=== PATIENT | male | born 2000 | race Caucasian/White ===

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

== ENCOUNTER 2018-04-26 04:35 | Emergency (ER) | payer SELFPAY ==
[2018-04-26 04:35] VITALS: BP 138/75; PULSE 73; RESP 18; TEMP 36.9; O2SAT 98; BMI 24.4
--- NOTE | 2018-04-26 04:43 | ED.DCSUM_ITS ---
- ER Visit Summary Date of Service: 04/26/18 Chief Complaint: Dental pain History of Present Illness: The patient is a 17 M who presents with dental pain. He complains of pain in his bilateral upper teeth for several months. He states it was worse this morning when he woke up. He did take Tylenol about 10 hours ago but did not take anything this morning. No fevers. Review of systems otherwise negative. Physical Examination: Afebrile vitals are normal No distress Oropharynx clear he does not have any focal dental decay he has no focal dental tenderness he has no focal dental abscess No trismus clear speech Test Results: Not indicated Emergency Department Course and Treatment: I do not see evidence of focal infection/abscess. I do not see an indication for antibiotics. He was given naproxen for pain. He was given a prescription for the same. He was advised to follow-up with a dentist. Patient discharged. Treatment Plan: [] Disposition: Discharge Impression: Dental pain This note was generated with [employer] dictation software. It may contain incorrect words, spelling, and punctuation that were not noted in review of the chart barrett or to signing ED Disposition - Plan for ED Patient: Chief Complaint: Dental Referrals: Lucho Pedroza MD [Primary Care Provider] -
--- NOTE | 2018-04-26 04:43 | ED.DEP ---
ED Disposition - Plan for ED Patient: Chief Complaint: Dental Instructions: ED Tooth Pain Prescriptions: Naproxen [Naprosyn] 500 mg PO BID #14 tab Referrals: Lucho Pedroza MD [Primary Care Provider] -
[2018-04-26] MEDS: Naproxen 500 MG Tablet PO (04:46)
[2018-04-26 04:48] VITALS: PULSE 71; RESP 16; O2SAT 98
== END 2018-04-26 04:55 | disposition home or self-care (01) ==
LOC: ED 04:54
PROVIDERS: Emergency Provider Emergency Medicine; Family Provider Pediatrics; PCP Pediatrics
DX: K08.89 Other specified disorders of teeth and supporting structures (principal); Z72.0 Tobacco use
CPT/HCPCS: 99283

== ENCOUNTER 2018-12-29 12:58 | Emergency (ER) | payer SELFPAY ==
[2018-11-14 18:26] VITALS: BMI 23.1
[2018-12-29] VITALS (9 sets, daily range): BP systolic 112–120; BP diastolic 64–90; PULSE 70–80; RESP 14–19; TEMP 36.9; O2SAT 97–99; BMI 23.2
--- NOTE | 2018-12-29 13:15 | ED.VIS.GEN ---
History of Present Illness Chief Complaint: Mental Health Informant: Patient, Creative Services Coordinator, - - Police Narrative: Patient presents with multiple cuts to his left wrist, feeling quite depressed and sad. He has thoughts of hurting himself but does not want to . He is here against his wishes, ambulance and police department were called to his house by family member after the cutting. Apparently he is quite sad secondary to his father being very close to dying. Past Medical History - Allergies and Home Meds Allergies/Adverse Reactions: Allergies polyethylene glycol 3350 [From Miralax] Allergy (Verified 12/29/18 12:59) Hives Primary Care Physician: Care Physician,No Primary [Primary Care Provider] - Past Medical History: None Surgical History: no surgical history Smoking Status: Current every day smoker Review of Systems All systems negative except as indicated Cardiovascular: Denies: Chest pain Gastrointestinal: Denies: Abdominal pain Musculoskeletal: Denies: Back pain Skin: Reports: Abrasions, Wounds Neurological: Denies: Weakness Psych: Reports: Depression, Anxiety Hematologic: Denies: Easy bleeding Physical Exam Vital Signs/Narrative: Vital Signs Temp Pulse Resp BP Pulse Ox 12/29/18 12:59 98.4 F 70 17 120/69 99 General: Well nourished, Well developed Eyes: Perrl ENT: Moist mucous membranes Cardiovascular: Regular rate, Regular rhythm Respiratory: No distress Abdomen: Soft, Nontender Back: Nontender, Normal Inspection Extremities: - - Left wrist shows multiple abrasions, there is one laceration through the dermal layer of the is about 5 cm long. Neurological: Normal Strength, Normal Sensation Diagnostic/Tx/Re-eval - Medical Decision Making Patient was medically cleared and evaluated by crisis. He was sutured. Disposition is to reevaluate by crisis. Procedures - Lacerations No standard instances Length: 1.97 in Depth: Sub Q Shape: Linear Prep: Shure-Clens Laceration repair: Lidocaine Number of Sutures/Jennings: 3 Suture Information: Ethilon, 4-0 ED Disposition - Plan for ED Patient: Disposition: Psychiatric Hospital or Unit Diagnosis: Depression, Laceration Referrals: Care Physician,No Primary [Primary Care Provider] -
[2018-12-29 13:37] LABS: Absolute Lymphocyte Count 2.27 X10^3/uL (0.83-4.51); Absolute Neutrophil Count 6.2 X10^3/uL (2.0-7.7); Basophil# 0.08 X10^3/uL; Basophil% 0.9 % (0-1); Eosinophil# 0.37 X10^3/uL; Hematocrit 48.6 % (40-54); Lymphocyte # 2.27 X10^3/ul (4.0); Lymphocyte % 24.3 % (19-41); Mean Corp Hgb Conc 32.9 g/dL (32-36); Mean Corpuscular Hgb 28.7 pg (27.0-32.0); Mean Corpuscular Volume 87.3 fL (80-94); Mean Platelet Vol. 10.1 fl (6.2-12.0); Monocyte# 0.35 X10^3/uL; Monocyte% 3.7 % (0-10); NRBC Flagged by Analyzer 0 % (0-5); Neutrophil # 6.24 X10^3/uL (2.7-7.7); Neutrophil % 66.6 % (47-70); POSITIVE COUNT YES; RBC Distribution Width CV 13.2 % (11.6-14.6); RBC Distribution Width SD 41.9 fl (35.1-43.9); Red Blood Count 5.57 M/mm3 (4.6-6.2); White Blood Count 9.4 K/mm3 (4.4-11.0)
[2018-12-29 13:39] LABS: Differential Indicated SCAN CRITERIA MET
--- NOTE | 2018-12-29 13:40 | CM.ED ---
SOCIAL WORK REVIEWED PATIENT'S CHART. PATIENT IS SELF-PAY. CRISIS TO EVALUATE ONCE PATIENT IS MEDICALLY CLEARED. SHMUEL MYERS, NEWSPAPER DELIVERER, NEEDLE MOLDER.
[2018-12-29 13:47] LABS: Anion Gap 4 (5-15); BUN 17 mg/dL (7-18); BUN/Creat Ratio 18.9 RATIO (10-20); Calcium,Total 9.3 mg/dL (8.5-10.1); Chloride 111 mmol/L (98-107); EST Glomerular Filtration Rate 114 mL/min (>60); Est Glom Filt Rate - Afr Amer 137 mL/min (>60); Glucose 96 mg/dL (74-106); Potassium 4.3 mmol/L (3.5-5.1); Sodium Level 141 mmol/L (136-145)
[2018-12-29 13:52] LABS: Amphetamine Urine VISTA POSITIVE (<1000 ng/mL); Barbiturate Urine VISTA NEGATIVE (< 200 ng/mL); Benzodiazepine Urine VISTA NEGATIVE (< 200 ng/mL); Cocaine Urine VISTA POSITIVE (< 300 ng/mL); Ecstacy Urine VISTA NEGATIVE (< 500 ng/mL); Methadone Urine VISTA NEGATIVE (< 300 ng/mL); PCP Urine VISTA NEGATIVE (< 25 ng/mL); THC Urine VISTA POSITIVE (< 50 ng/mL); Vista UDS pH Range 6
[2018-12-29 13:59] LABS: Alcohol, Blood (Medical)-Serum < 3.0 mg/dL
[2018-12-29 14:15] LABS: Platelet Morphology CLUMPED
[2018-12-29 14:17] LABS: Platelet Estimate ADEQUATE (ADEQ); Red Cell Morphology NORM C+C NORMAL (NORM C&C)
--- NOTE | 2018-12-29 14:48 | CM.ED ---
SOCIAL WORK CRISIS CALLED TO UPDATE ON CONSULT, SPOKE WITH MARIO. PER MARIO, WILL BE SENDING SOMEONE OVER. SHMUEL MYERS, STONE DECORATOR, WAREHOUSE EXAMINER.
--- NOTE | 2018-12-29 18:21 | ED.RN ---
PER CRISIS; PT WILL BE PLACED WITH [facility]
--- NOTE | 2018-12-29 19:00 | ED.RN ---
waiting on bed placement at [facility]
--- NOTE | 2018-12-29 21:06 | EKG12_ITS ---
[place] [facility] [place] Pressure : / mmHG Vent. Rate : 049 BPM Atrial Rate : 049 BPM P-R Int : 136 ms QRS Dur : 096 ms QT Int : 428 ms P-R-T Axes : 051 057 049 degrees QTc Int : 386 ms Sinus bradycardia with Premature atrial complexes Otherwise normal ECG Confirmed by ASHVIN HORVATH, ALYSSIA ([id number]), graphic editor MALENA MALIK ([id number]) on 01/02/2019 12:02:28 PM Referred By: DANIELLE Confirmed By:SHLOMO LOCK MD
--- NOTE | 2018-12-29 21:46 | ED.RN ---
[facility] REQUESTED A CK FOR THE PT POSITIVE COCAINE RESULT. DR. SINGH MADE AWARE VERBAL ORDER READ BACK TO THE DR FOR CPK TEST. WILL SEND DOWN TO THE LAB AND AWAIT RESULT. PT HAS NO FURTHER NEEDS AT THIS TIME AND IS RESTING COMFORTABLY.
[2018-12-29 22:15] LABS: CPK Total, Creatine Kinase 153 U/L (39-308)
[2018-12-30] VITALS (10 sets, daily range): BP systolic 115–122; BP diastolic 63–89; PULSE 70–82; RESP 15–18; O2SAT 97–98
--- NOTE | 2018-12-30 08:59 | ED.RN ---
PT GIVEN BREAKFAST TRAY. PT REFUSED TRAY. TRAY WAS LEFT IN THE ROOM AND PT INFORMED THAT TRAY WAS ON COUNTER.
--- NOTE | 2018-12-30 11:18 | NURSING ---
PT REQUESTED TO BE RE-EVALUATED BY CRISIS. CRISIS CALLED AND GILLIAN TO CALL BACK.
--- NOTE | 2018-12-30 11:33 | ED.RN ---
PT REQUESTED REEVALUATION BY CRISIS. PT DENIES SUICIDAL IDEATION AND WISHES TO GO HOME, STATES IT IS HIS CHILD'S FIRST BIRTHDAY. PT STATES THAT HE WAS NEVER SUICIDAL. CRISIS WAS CONTACTED AND GILLIAN AGREED TO REEVALUATE PT. PT WAS PROVIDED WITH PHONE TO CONTACT FAMILY. PT UPDATED ABOUT CRISIS COMING TO SPEAK TO HIM. PT ALSO INFORMED THAT REEVALUATION DOES NOT GUARANTEE ABILITY TO GO HOME. PT CONVEYED UNDERSTANDING. DENIES FURTHER NEEDS AT THIS TIME.
--- NOTE | 2018-12-30 11:36 | NURSING ---
CHRIS, CRISIS, CALLED. HE WILL BE OVER TO SEE PATIENT
--- NOTE | 2018-12-30 12:19 | ED.RN ---
PT GIVEN LUNCH TRAY. PT REFUSED TO EAT, STATES THAT HE IS PICKY ABOUT WHERE I EAT MY FOOD FROM. PT OFFERED OTHER OPTIONS FOR FOOD, PT REFUSED. LUNCH WAS LEFT IN ROOM ON COUNTER FOR LATER.
--- NOTE | 2018-12-30 13:21 | ED.DEP ---
ED Disposition - Plan for ED Patient: Disposition: Psychiatric Hospital or Unit Diagnosis: Depression, Laceration Instructions: Depression Additional Instructions: Follow up as advised by the counseling center.
== END 2018-12-30 13:24 | disposition home or self-care (01) ==
PROVIDERS: Emergency Provider Emergency Medicine
DX: F32.9 Major depressive disorder, single episode, unspecified (principal); I49.1 Atrial premature depolarization; F17.200 Nicotine dependence, unspecified, uncomplicated; Z91.5 Personal history of self-harm
CPT/HCPCS: 80048; 80307; 80320; 82550; 85025; 93005; 99284; G0480; J3486

== ENCOUNTER 2020-02-03 17:04 | Emergency (ER) | payer MEDICAID, SELFPAY ==
[2018-12-29 12:59] VITALS: BMI 23.2
[2020-02-03 17:05] VITALS: BP 144/75; PULSE 104; RESP 16; TEMP 36.1; O2SAT 97; BMI 23.6
--- NOTE | 2020-02-03 17:51 | ED.RN ---
pt unsure if he wants to sign and complete the ramp agreement. pt states I only want to if my brother is. Pt reminded that if admitted he will not be allowed to see or talk with his brother. Pt states I want to think about it for awhile.
--- NOTE | 2020-02-03 18:36 | ED.DCSUM_ITS ---
History of Present Illness Chief Complaint: Substance Abuse Informant: Patient Narrative: Patient is a 19-year-old male with history of IV drug abuse presenting for evaluation for inpatient detox. Patient last used IV heroin yesterday. He states this week he has been using daily but for that he has been using every other day. He states he wants to get clean because he is pushed away his girlfriend and their child. He is presenting with his brother who has the same chief complaint. Patient states has been using since July 31 of this year when he was released from longterm. He has been in contact with [facility] as well. He currently denies any withdrawal symptoms such as nausea, vomiting, abdominal pain, extremity discomfort. His only complaint is nausea. He denies any other illicit drug use or alcohol use. Patient states he is uncomfortable with idea of having to come to the hospital and really just wants to get out of town with a family friend where he can be away from all of his drug contacts. Past Medical History - Allergies and Home Meds Allergies/Adverse Reactions: Allergies polyethylene glycol 3350 [From Miralax] Allergy (Verified 02/03/20 17:07) Roberto Primary Care Physician: Care Physician,No Primary [Primary Care Provider] - Past Medical History: - - History of IV opioid abuse Surgical History: no surgical history Lives: With Family Smoking Status: Current every day smoker Alcohol: None Drugs: Heroin Review of Systems General: Denies: Chills, Fever, Sweats Eyes: Denies: Visual changes - bilaterally, Diplopia ENT: Denies: Rhinorrhea, Sore throat Cardiovascular: Denies: Chest pain, Palpitations Respiratory: Denies: Dyspnea, Cough, Dyspnea on exertion Gastrointestinal: Denies: Abdominal pain, Nausea, Vomiting, Diarrhea, Melena, Hematochezia Genitourinary: Denies: Dysuria, Hematuria, Frequency Musculoskeletal: Denies: Back pain, Extremity Pain Skin: Denies: Rash, Wounds Neurological: Denies: Headache, Weakness, Numbness Psych: Reports: Anxiety. Denies: Depression, Suicidal thoughts, Suicidal ideations Physical Exam Vital Signs/Narrative: Vital Signs Temp Pulse Resp BP Pulse Ox 02/03/20 17:05 97.0 F L 104 H 16 144/75 H 97 Inital Vital Signs reviewed: Yes General: Well nourished, Well developed, No Acute Distress Head: Normocephalic, Atraumatic Eyes: Perrl, EOMI ENT: Moist mucous membranes, No rhinorrhea Neck: Supple, Nontender Cardiovascular: Regular rate, Regular rhythm, No murmurs Respiratory: No distress, CTA bilaterally, Chest nontender Abdomen: Soft, Nontender, Nondistended, Normal bowel sounds Back: Nontender, Normal Inspection Extremities: Nontender, No edema Skin: Normal color, No rash Neurological: Alert, Oriented x3, Cranial nerves II-XII grossly intact, Normal Strength, Normal Sensation Psychological: Normal affect, Normal Mood, - - Mildly anxious but behaving appropriately. Negative for: Depressed, Tearful Diagnostic/Tx/Re-eval - Medical Decision Making Patient is evaluated for opioid withdrawal. He does not appear to be actively withdrawing. Its been at least 24 hours since he last used and is not having a ny significant symptoms. His only symptom is anxiety that seems to be more related to the situation than the withdrawal. She is offered admission for opioid withdraws is only been 24 hours but he declines stating he really does not want to come to the hospital. He does not use any significant sedatives or alcohol and I do not think he is at risk for delirium tremens. He is behaving appropriately and has capacity to make his medical decisions. His vital signs are normal. Patient be discharged home with instructions to contact rehab facility as I think he would be a good candidate for an inpatient rehab facility. He is encouraged to continue to use [facility] for resources. He will be with his mother and a family friend and I believe the plan is for them to leave the [facility] where all of the drug contacts are. ED Disposition - Plan for ED Patient: Disposition: Home or Assisted Living Diagnosis: IV drug abuse, Opioid abuse Instructions: ED Abuse Narcotic Referrals: [facility] [STAFF PHYSICIAN] -
== END 2020-02-03 18:59 | disposition home or self-care (01) ==
PROVIDERS: Emergency Provider Emergency Medicine
DX: F11.10 Opioid abuse, uncomplicated (principal); F17.200 Nicotine dependence, unspecified, uncomplicated
CPT/HCPCS: 99282

== ENCOUNTER 2021-05-03 15:07 | Observation (INO) | payer MEDICAID, SELFPAY ==
[2021-05-03 15:08] VITALS: BP 137/71; PULSE 100; RESP 18; TEMP 36.6; O2SAT 100; BMI 25.0
[2021-05-03 16:11] VITALS: PULSE 82; RESP 15; O2SAT 99
[2021-05-03 16:52] LABS: Absolute Lymphocyte Count 1.86 X10^3/uL (0.83-4.51); Absolute Neutrophil Count 7.2 X10^3/uL (2.0-7.7); Basophil# 0.04 X10^3/uL; Basophil% 0.4 % (0-1); Eosinophil# 0.08 X10^3/uL; Eosinophils% 0.9 % (0-5); Hematocrit 43.5 % (40-54); Hemoglobin 13.9 g/dL (13.0-16.5); Lymphocyte # 1.86 X10^3/ul (0.83-4.51); Lymphocyte % 19.9 % (19-41); Mean Corpuscular Hgb 26.3 pg (27.0-32.0); Mean Corpuscular Volume 82.4 fL (80-94); Mean Platelet Vol. 8.4 fl (6.2-12.0); Monocyte# 0.22 X10^3/uL; Monocyte% 2.3 % (0-10); NRBC Flagged by Analyzer 0 % (0-5); Neutrophil # 7.15 X10^3/uL (2.7-7.7); Neutrophil % 76.3 % (47-70); Platelet Count 228 K/mm3 (150-450); RBC Distribution Width CV 14.2 % (11.6-14.6); RBC Distribution Width SD 42.5 fl (35.1-43.9); Red Blood Count 5.28 M/mm3 (4.6-6.2); White Blood Count 9.4 K/mm3 (4.4-11.0)
[2021-05-03 17:02] LABS: Amphetamine Urine VISTA POSITIVE (<1000 ng/mL); Barbiturate Urine VISTA NEGATIVE (< 200 ng/mL); Benzodiazepine Urine VISTA NEGATIVE (< 200 ng/mL); Cocaine Urine VISTA NEGATIVE (< 300 ng/mL); Ecstacy Urine VISTA POSITIVE (< 500 ng/mL); Methadone Urine VISTA NEGATIVE (< 300 ng/mL); PCP Urine VISTA NEGATIVE (< 25 ng/mL); THC Urine VISTA POSITIVE (< 50 ng/mL); Vista UDS pH Range 6
[2021-05-03 17:12] LABS: Alcohol, Blood (Medical)-Serum < 3.0 mg/dL; Anion Gap 7 (5-15); BUN 13 mg/dL (7-18); BUN/Creat Ratio 18.8 RATIO (10-20); Calcium,Total 9.5 mg/dL (8.5-10.1); Chloride 106 mmol/L (98-107); Creatinine, Serum 0.69 mg/dL (0.70-1.30); EST Glomerular Filtration Rate 151 mL/min (>60); Est Glom Filt Rate - Afr Amer 183 mL/min (>60); Estimated Creatinine Clearance 184.32 ml/min; Glucose 96 mg/dL (74-106); Sodium Level 140 mmol/L (136-145)
--- NOTE | 2021-05-03 17:43 | EDS_ITS ---
HPI History of Present Illness Chief Complaint: Substance Abuse Narrative Narrative: 20-year-old male presenting for detox from opioids. He states he does heroin and does about an 8 ball a day. He states he does smoke marijuana. Patient states that he has not detox before. His last use was about 17 hours ago. He states he has no other significant medical history. He denies EtOH use. PFSH PFS Medical History Anxiety Asthma Depression Substance abuse Home Medications NK 11/14/18 [History Last Taken Unknown] Allergy/AdvReac Type Severity Reaction Status Date / Time polyethylene glycol 3350 Allergy Hives Verified 05/03/21 15:09 [From Miralax] Social History Smoking Status: Heavy Smoker (>10/day) ROS ROS ED Constitutional Constitutional ED: Denies chills, fever(s) or sweats Eyes Eyes: Denies blurry vision or change in vision ENT ENT ED: Denies ear pain or sore throat Cardiovascular Cardiovascular: Denies chest pain, palpitations or racing heartbeat Respiratory/Chest Respiratory/Chest: Denies cough, dyspnea or sputum Gastrointestinal Gastrointestinal: Denies abdominal pain, constipation, diarrhea, nausea or vomiting Genitourinary Genitourinary ED: Denies dysuria, hematuria or urinary frequency Musculoskeletal Musculoskeletal: Denies arthralgias, myalgias or neck pain Integumentary Denies abscess, Abrasions or rash Neurologic Neurologic: Denies headache(s), paresthesias or weakness Psychiatric Psychiatric: Denies anxiety, depression, suicidal ideation or suicidal thoughts Endocrine Endocrinology: Denies polydipsia or polyuria EXAM Physical Exam Const Vital Signs: 05/03/21 15:08 05/03/21 16:11 05/03/21 18:04 Temperature 97.9 F 97.8 F Temperature Source Temporal Temporal Pulse Rate 100 82 72 Respiratory Rate 18 15 15 Blood Pressure 137/71 H 125/84 H Blood Pressure Mean 93 97 Pulse Ox 100 99 98 Oxygen Delivery Method Room Air Room Air Room Air Positive well nourished General Appearance ED: NAD; Negative for pallor HEENT Reports moist mucous membranes atraumatic Eyes PERRL and EOMs intact bilaterally Resp normal respiratory effort and clear to auscultation bilaterally Cardio regular rate and regular rhythm Neuro oriented x3 Sensorium / Orientation: alert Psych mental status grossly normal and thought process normal Skin General Skin Exam: Negative for jaundice or pallor Lesions: no lesions Rashes: no rashes MDM MDM MDM Narrative Medical decision making narrative: Patient presenting for detox from heroin. When asked how much he used he stated an 8 ball. He uses this daily. Patient also admits to using marijuana. He denies EtOH use. Blood work today is normal. EtOH negative. Talk screen is positive for cannabinoids and methamphetamine. It is unclear whether he has been using fentanyl instead of heroin. Discussed with hospitalist for admission. Impression: 1. Opioid detox 2. Methamphetamine abuse Lab Data Attestation: I reviewed the patient's lab results. Labs: Laboratory Results - last 24 hr 05/03/21 05/03/21 05/03/21 16:42 16:42 16:42 WBC 9.4 RBC 5.28 Hgb 13.9 Hct 43.5 MCV 82.4 MCH 26.3 L MCHC 32.0 RDW Std Deviation 42.5 RDW Coeff of Concetta 14.2 Plt Count 228 MPV 8.4 Immature Gran % (Auto) 0.200 Neut % (Auto) 76.3 H Lymph % (Auto) 19.9 [place] % (Auto) 2.3 Eos % (Auto) 0.9 Baso % (Auto) 0.4 Absolute Neuts (auto) 7.2 Absolute Lymphs (auto) 1.86 Nucleated RBC % 0 Sodium 140 Potassium 4.0 Chloride 106 Carbon Dioxide 27.0 Anion Gap 7 BUN 13 Creatinine 0.69 L Estim Creat Clear Calc 184.32 Est GFR (MDRD) Af Amer 183 Est GFR (MDRD) Non-Af 151 BUN/Creatinine Ratio 18.8 Glucose 96 Calcium 9.5 Urine Opiates Screen Urine Methadone Screen Ur Barbiturates Screen Ur Phencyclidine Scrn Ur Amphetamines Screen U Methamphetamin-MDMA U Benzodiazepines Scrn Urine Cocaine Screen U Cannabinoids Screen Ur Drug Screen Comment Ethyl Alcohol < 3.0 05/03/21 16:42 WBC RBC Hgb Hct MCV MCH MCHC RDW Std Deviation RDW Coeff of Concetta Plt Count MPV Immature Gran % (Auto) Neut % (Auto) Lymph % (Auto) [place] % (Auto) Eos % (Auto) Baso % (Auto) Absolute Neuts (auto) Absolute Lymphs (auto) Nucleated RBC % Sodium Potassium Chloride Carbon Dioxide Anion Gap BUN Creatinine Estim Creat Clear Calc Est GFR (MDRD) Af Amer Est GFR (MDRD) Non-Af BUN/Creatinine Ratio Glucose Calcium Urine Opiates Screen NEGATIVE Urine Methadone Screen NEGATIVE Ur Barbiturates Screen NEGATIVE Ur Phencyclidine Scrn NEGATIVE Ur Amphetamines Screen POSITIVE H U Methamphetamin-MDMA POSITIVE H U Benzodiazepines Scrn NEGATIVE Urine Cocaine Screen NEGATIVE U Cannabinoids Screen POSITIVE H Ur Drug Screen Comment Ethyl Alcohol Discharge Plan Triage Chief Complaint: Substance Abuse ED Provider: Magdaleno Nuñez Dx/Rx/DC Orders Prescriptions: No Action NK RF: 0 Primary Care Provider: Care Physician,No Primary
[2021-05-03 18:04] VITALS: BP 125/84; PULSE 72; RESP 15; TEMP 36.6; O2SAT 98
--- NOTE | 2021-05-03 18:24 | PCM.HP.STD ---
HPI - General General Date of Admission: 05/03/21 Date of Service: 05/03/21 Chief Complaint: Acute opioid withdrawal HPI Narrative CALI JACKMAN, is a 20 M who presents to the emergency room at [facility] requesting services for opiate detox. Patient states that he injects fentanyl and uses weed, he denies use of alcohol or amphetamines. Patient is complaining of nervousness and feeling anxious, denies any nausea and vomiting, last use was approximately 17 hours ago. Patient states that he has been using for 3 years and he has not gone through detox before. Patient states he does not have any chronic medical problems. Work-up in the emergency room included labs which included a normal CBC, chemistry panel is unremarkable, toxicology panel was positive for amphetamines, methamphetamines, and cannabinoids. Ethyl alcohol was under 3. Patient will be admitted to [facility] using the opiate detox order set, patient states that he would like to follow-up as an outpatient rather than doing inpatient stay when he is released from the hospital. [facility] Medical History Anxiety Asthma Depression Substance abuse Home Medications NK 11/14/18 [History Last Taken Unknown] Allergy/AdvReac Type Severity Reaction Status Date / Time polyethylene glycol 3350 Allergy Hives Verified 05/03/21 15:09 [From Miralax] Social History Smoking Status: Heavy Smoker (>10/day) ROS Constitutional Constitutional: Reports malaise; Denies anorexia, change in weight, chills, fatigue, fever(s), night sweats or weakness Eyes Eyes: Denies blurry vision, change in vision, discharge from eye(s), double vision or eye pain ENT HEENT: Denies abnormal hearing, ear pain or hearing loss Cardiovascular Cardiovascular: Denies chest pain, claudication, dyspnea on exertion, edema, lightheadedness, palpitations or rapid heart rate Respiratory/Chest Respiratory/Chest: Denies cough, dyspnea, excessive phlegm production, hemoptysis, productive cough, shortness of breath at rest or shortness of breath with exertion Gastrointestinal Gastrointestinal: Denies abdominal pain, coffee ground emesis, constipation, diarrhea, dyspepsia, hematemesis, hematochezia, melena, nausea or vomiting Genitourinary Genitourinary: Denies dysuria, hematuria, urinary frequency, urinary hesitancy, urinary incontinence or urinary urgency Musculoskeletal Musculoskeletal: Denies back pain, joint pain, joint stiffness, joint swelling, myalgias or neck pain Neurologic Neurologic: Reports tremor(s); Denies abnormal gait, abnormal speech, dizziness, focal weakness, headache(s), loss of vision, numbness, other visual disturbances, paresthesias, syncope or tingling Psychiatric Psychiatric: Reports anxiety and irritability; Denies cognitive impairment, depression, mood swings or suicidal ideation Endocrine Endocrinology: Denies change in body appearance, cold intolerance, excessive sweating, heat intolerance, polydipsia or polyuria Hematologic/Lymphatic Hematologic/Lymphatic: Denies none, anemia, easy bleeding, easy bruising or lymphadenopathy Allergic/Immunologic Allergic/Immunologic: Denies rhinitis, urticaria, eczemia or asthma Vital Signs Vital Signs Vital Signs: 05/03/21 15:08 05/03/21 16:11 05/03/21 18:04 Temperature 97.9 F 97.8 F Temperature Source Temporal Temporal Pulse Rate 100 82 72 Respiratory Rate 18 15 15 Blood Pressure 137/71 H 125/84 H Blood Pressure Mean 93 97 Pulse Ox 100 99 98 Oxygen Delivery Method Room Air Room Air Room Air Weight Weight: 83.915 kg Body Mass Index (BMI) 25.0 Physical Exam Const alert, oriented x3, no apparent distress and average body habitus General Appearance: cooperative, well kempt and well developed Orientation / Consciousness: awake, oriented to person, oriented to place and oriented to time HEENT normocephalic, head/scalp atraumatic, hearing grossly normal bilaterally and moist oral mucous membranes Eyes PERRL, EOMs intact bilaterally and conjunctivae normal Neck nuchal rigidity, supple, no JVD, thyroid normal and no carotid bruits General: trachea midline Resp normal respiratory effort, no retractions, no use of accessory muscles and clear to auscultation bilaterally Auscultation: Negative for rales, rhonchi or wheezes Cardio regular rate, regular rhythm, S1 normal heart sound, S2 normal heart sound, no murmurs, no rub and no gallops GI normal to inspection, nondistended, normoactive bowel sounds, soft to palpation, non-tender and non-distended Extremity no clubbing, cyanosis or edema Extremity Narrative: Patient has track mckee in various areas over his left and right arms, these areas do not appear to be infected and there is no purulent drainage from these areas. Skin no jaundice, no petechiae and no mottling Skin Narrative: Track mckee are noted over both arms in various areas. General Skin Exam: no breakdown Neuro oriented x3, CN's II-XII intact bilaterally, no focal motor deficits and no sensory deficits noted Sensorium / Orientation: awake and alert Speech: speech normal Psych thought process normal Psych Narrative: Patient appears mildly nervous during the time of my examination Results Lab / Micro Data Result Diagrams: 05/03/21 16:42 05/03/21 16:42 Labs: Laboratory Results - last 24 hr 05/03/21 16:42: WBC 9.4, RBC 5.28, Hgb 13.9, Hct 43.5, MCV 82.4, MCH 26.3 L, MCHC 32.0, RDW Std Deviation 42.5, RDW Coeff of Concetta 14.2, Plt Count 228, MPV 8.4, Immature Gran % (Auto) 0.200, Neut % (Auto) 76.3 H, Lymph % (Auto) 19.9, [place] % (Auto) 2.3, Eos % (Auto) 0.9, Baso % (Auto) 0.4, Absolute Neuts (auto) 7.2, Absolute Lymphs (auto) 1.86, Nucleated RBC % 0 05/03/21 16:42: Sodium 140, Potassium 4.0, Chloride 106, Carbon Dioxide 27.0, Anion Gap 7, BUN 13, Creatinine 0.69 L, Estim Creat Clear Calc 184.32, Est GFR (MDRD) Af Amer 183, Est GFR (MDRD) Non-Af 151, BUN/Creatinine Ratio 18.8, Glucose 96, Calcium 9.5 05/03/21 16:42: Ethyl Alcohol < 3.0 05/03/21 16:42: Urine Opiates Screen NEGATIVE, Urine Methadone Screen NEGATIVE, Ur Barbiturates Screen NEGATIVE, Ur Phencyclidine Scrn NEGATIVE, Ur Amphetamines Screen POSITIVE H, U Methamphetamin-MDMA POSITIVE H, U Benzodiazepines Scrn NEGATIVE, Urine Cocaine Screen NEGATIVE, U Cannabinoids Screen POSITIVE H, Ur Drug Screen Comment Assessment & Plan Assessment/Plan (1) Opioid withdrawal: PLAN: 1. Acute opioid withdrawal-patient was admitted to [facility], orders were entered using the opiate detox order set #2 chronic opioid addiction-patient will need to talk with 180 during his hospitalization, he states he is in favor of doing that, again patient would like to do an outpatient program when he is released from the hospital. #3 polypharmacy-patient's talk screen was positive for amphetamines, methamphetamines, and cannabinoids Charges/Coding Visit Charges Inpatient E&M: 27123 Init Hosp L3
--- NOTE | 2021-05-03 19:38 | PCS.PANDOC ---
PANDEMIC DOCUMENTATION INITIATED: Date: 12/01/2020 Time: 190
--- NOTE | 2021-05-03 19:49 | PCS.PANDOC ---
PANDEMIC DOCUMENTATION INITIATED: Date: 05/03/2021 Time: 1944
[2021-05-03 19:50] VITALS: BMI 20.9
[2021-05-03 20:14] VITALS: BP 113/54; PULSE 66; RESP 16; TEMP 37.1; O2SAT 100
[2021-05-03] MEDS: Methocarbamol 750 MG Tablet 1500 MG PO (20:38)
[2021-05-03] MEDS: Ondansetron 8 MG Tablet PO (20:38)
[2021-05-03] MEDS: Buprenorphine HCl 2 MG TAB.SUBL 4 MG SL (20:38)
[2021-05-03] MEDS: Dicyclomine 10 MG Capsule 20 MG PO (20:38)
[2021-05-03] MEDS: hydrOXYzine PAM 25 MG Capsule 50 MG PO (20:38)
--- NOTE | 2021-05-03 20:49 | NURSING ---
pt asked for his aunt zay ([phone]) to be notified that he was here this rn did so.
--- NOTE | 2021-05-03 21:15 | NURSING ---
pt called out and states he wants to be discharged. went in to speak with pt states hes not ready for detox, he doesnt want to speak to the dr. encouraged pt to follow up with [facility]. pt aware that his aunt was notified he is here but pt doesnt want her notified that he is leaving he stated he will notify her. nursing supv on floor and aware. security called to accompany pt to leave building. will notify
--- NOTE | 2021-05-03 21:25 | NURSING ---
pt dressed has all his personal belongings security here to accompany pt out of building.
--- NOTE | 2021-05-03 21:56 | PCM.HOSP.N ---
Hospitalist Note Patient left AMA per nursing report at 21:25 following a shower, a meal and 1st dose of subutex as well as some PRN medications.
== END 2021-05-03 21:25 | disposition left against medical advice (07) ==
LOC: ED 17:08 → MS3 21:46
PROVIDERS: Admitting Provider Internal Medicine; Emergency Provider Student in an Organized Health Care Education/Training Program; Visit Provider Internal Medicine
DX: F11.23 Opioid dependence with withdrawal (principal); F15.10 Other stimulant abuse, uncomplicated; F12.90 Cannabis use, unspecified, uncomplicated; F17.200 Nicotine dependence, unspecified, uncomplicated; J45.909 Unspecified asthma, uncomplicated
CPT/HCPCS: 80048; 80307; 82077; 85025; 99218; 99283; G0378

== ENCOUNTER 2021-08-21 22:19 | Emergency (ER) | payer MEDICAID, SELFPAY ==
[2021-08-21 22:20] VITALS: BP 146/71; PULSE 98; RESP 95; TEMP 37.3; BMI 25.5
--- NOTE | 2021-08-21 22:53 | EDS_ITS ---
HPI History of Present Illness Chief Complaint: Substance Abuse Detail of Chief Complaint: Also right axilla abscess. Informant: patient Onset/Context/Timing Onset: Weeks Context: Gradual Onset Timing: Continuous Current Severity: Mild Maximum Severity: Mild Narrative Narrative: 21-year-old male history of drug abuse. States he is also depressed. He was recently incarcerated was on Zoloft and Seroquel but when he got released from assisted or [facility] he had no prescriptions. States he is not s uicidal. He is in some type of rehab facility currently and today says he took a Percocet. Triage note says a bag of heroin which he denies. Also the patient states that he has a bump in his right axilla which is a subcu abscess. States its been there for at least a week. Prior similar symptoms: Yes Recent Illness/Hospitalization: No PFSH PFSH Medical History Anxiety Asthma Depression Substance abuse Home Medications cephalexin 500 mg PO Q6 #40 cap 08/21/21 [Rx Last Taken Unknown] quetiapine [Seroquel] 50 mg PO BID 08/21/21 [History Last Taken Unknown] quetiapine [Seroquel] 50 mg PO BID #30 tab 08/21/21 [Rx Last Taken Unknown] sertraline [Zoloft] 50 mg PO BID 08/21/21 [History Last Taken Unknown] sertraline [Zoloft] 50 mg PO DAILY #14 tab 08/21/21 [Rx Last Taken Unknown] Allergy/AdvReac Type Severity Reaction Status Date / Time polyethylene glycol 3350 Allergy Hives Verified 08/21/21 22:27 [From Miralax] Social History Smoking Status: Heavy Smoker (>10/day) ROS ROS ED ROS Narrative Denies. Review of Systems ROS Unobtainable: Denies due to encephalopathy Constitutional Constitutional ED: Denies fever(s) Eyes Eyes: Denies change in vision ENT ENT ED: Denies ear pain Cardiovascular Cardiovascular: Denies chest pain Respiratory/Chest Respiratory/Chest: Denies dyspnea Gastrointestinal Gastrointestinal: Denies abdominal pain, diarrhea, nausea or vomiting Genitourinary Genitourinary ED: Denies dysuria Musculoskeletal Musculoskeletal: Denies myalgias Integumentary Denies rash Neurologic Neurologic: Denies headache(s) Psychiatric Psychiatric: Denies depression Endocrine Endocrinology: Denies polyuria Hematologic/Lymphatic Hematologic/Lymphatic: Denies easy bruising Allergic/Immunologic Allergic/Immunologic ED: Denies urticaria EXAM Physical Exam Narrative Exam Narrative: 21-year-old male no acute distress. Vital signs stable afebrile. H EENT exam unremarkable. Neck nontender no lymphadenopathy. Lungs clear to auscultation bilaterally. Heart regular rate and rhythm no murmur. Chest were nontender. Abdomen soft nontender. Moving all 4 extremities. Neurovascular intact. No cellulitis. He does have a right axillary abscess which is fluctuant. IT is about the size of a $0.50 piece. Neurologically is awake and alert. Skin is unremarkable other than multiple tattoos. Const Vital Signs: 08/21/21 22:20 Temperature 99.1 F Temperature Source Oral Pulse Rate 98 Respiratory Rate 95 H Blood Pressure 146/71 H Blood Pressure Mean 96 Oxygen Delivery Method Room Air Positive well nourished and well developed; Negative for obese, cachectic, contractures or unkempt General Appearance ED: well developed and NAD; Negative for unkempt, cachectic, contractures or pallor Nutritional Appearance: Negative for cachectic or obese HEENT Reports moist mucous membranes atraumatic; Negative for trauma Eyes PERRL and EOMs intact bilaterally Neck no lymphadenopathy, supple and no JVD Thyroid: Negative for tender Lymph Lymphatic: no lymphadenopathy noted; Negative for lymphadenopathy Chest Wall inspection of chest normal and palpation of chest normal Resp normal respiratory effort and clear to auscultation bilaterally Auscultation: Negative for rales, rhonchi or wheezes Cardio regular rate, regular rhythm, S1 normal heart sound, S2 normal heart sound and no murmurs GI soft to palpation, non-tender, non-distended and no masses Inspection: Negative for abdominal distention Palpation: Negative for tender, guarding or rigid Back/Spine no CVA tenderness General Back: Negative for CVA tenderness Cervical Spine: Negative for cervical spine tenderness Thoracic Spine / Upper Back: Negative for thoracic spinal tenderness Lumbar Spine / Lower Back: Negative for lumbar spinal tenderness Extremity General Extremety ED: Negative for edema General Extremity: Negative for edema Neuro oriented x3 Sensorium / Orientation: alert, oriented to person, oriented to place and oriented to time Motor Exam: strength 5/5 throughout Psych mental status grossly normal and thought process normal Appearance: Negative for unkempt Attitude: No belligerent, No agitated, No aggressive and No hostile Mood & Affect: Negative for depressed, anxious or tearful Skin Skin Narrative: Right axillary abscess. General Skin Exam: Negative for jaundice or pallor Lesions: no lesions Rashes: no rashes MDM MDM MDM Narrative Medical decision making narrative: Patient requesting his Seroquel and Zoloft be refilled which I will do for 2 weeks. He will be instructed to follow-up with counseling center. Get a primary care physician. We will I&D his right axillary abscess. Place him on Keflex and have him follow-up with a local primary care physician. Patient was offered but did not want to go through detox and states he is in a assisted house currently. After the incision and drainage of the right axillary abscess. He was given a dose of Keflex and discharged to home. Procedures Other Procedures Procedure(s): Right axillary abscess. Cleaned with iodine. Local anesthetized with Xylocaine. Made about 1 cm vertical incision. Very small amount of pus was expressed less than a cc. Broke up loculations. Probed the wound. Placed several inches of quarter inch packing gauze. Patient tolerated procedure well. He was instructed on wound care to remove the packing material in 4 to 5 days. Discharge Plan Triage Chief Complaint: Substance Abuse ED Provider: Kiel Pedraza Dx/Rx/DC Orders Clinical Impression: Drug abuse, Depression, Armpit abscess Instructions: ED Drug Abuse, ED Abscess Incision And ... Prescriptions: New quetiapine [Seroquel] 50 mg tablet 50 mg PO BID Qty: 30 RF: 0 sertraline [Zoloft] 50 mg tablet 50 mg PO DAILY Qty: 14 RF: 0 cephalexin 500 mg capsule 500 mg PO Q6 Qty: 40 RF: 0 No Action sertraline [Zoloft] 50 mg Tablet 50 mg PO BID RF: 0 quetiapine [Seroquel] 50 mg Tablet 50 mg PO BID RF: 0 Primary Care Provider: Care Physician,No Primary Referrals: Counseling,Center [GROUP OF PHYSICIANS] - As soon as possible Rigoberto Palencia MD [NON-STAFF] - 3-5 Days Care Physician,No Primary [Primary Care Provider] - [facility] [STAFF PHYSICIAN] - As soon as possible Activity Restrictions/Additional Instructions: On a hot shower warm compress against your right armpit abscess. Pulled the packing out in 4 days. Keflex 1 pill 4 times a day for 10 days. Motrin Tylenol for pain. Follow-up with the counseling center for your depression. Follow-up with a primary care physician to reevaluate your abscess. Follow-up with [facility] for drug counseling. Disposition Disposition: Home, Self Care
[2021-08-21] MEDS: Lidocaine 1% (20 ml mdv) 20 ML Vial 5 ML INFILT (23:00)
[2021-08-21] MEDS: Cephalexin 250 MG Capsule 500 MG PO (23:17)
== END 2021-08-21 23:19 | disposition home or self-care (01) ==
PROVIDERS: Emergency Provider Emergency Medicine; Visit Provider Emergency Medicine
DX: L02.411 Cutaneous abscess of right axilla (principal); F17.200 Nicotine dependence, unspecified, uncomplicated; F32.A Depression, unspecified; F41.9 Anxiety disorder, unspecified; J45.909 Unspecified asthma, uncomplicated
CPT/HCPCS: 10060; 99285

== ENCOUNTER 2022-09-05 03:08 | Emergency (ER) | payer MEDICAID, SELFPAY ==
[2022-09-05 03:10] VITALS: BP 116/70; PULSE 97; RESP 18; TEMP 36.4; O2SAT 97; BMI 25.9
--- NOTE | 2022-09-05 03:19 | EDS_ITS ---
HPI History of Present Illness Chief Complaint: General Illness Informant: patient Narrative Narrative: Patient presents not feeling well. He does have a history of IV drug use and uses heroin. He does inject. He states he has never had an injection site infe ction. He has not had an infection recently. He has never had heart valve infection or abscesses drained. He does not have any abscesses or inflamed areas or rash now. He states that he just feels achy all over. He has mild nausea. He is denying coughing or trouble breathing. He is denying fever. He denies diarrhea or vomiting. No abdominal pain. No chest pain. He last used IV drugs within the last about 24 hours. He does not feel as though he is in withdrawal. He does not know anyone else who is sick. He has no chronic medical conditions other than drug abuse. No medications Allergy to MiraLAX No recent surgeries [facility] Medical History Anxiety Asthma Depression Substance abuse Home Medications NK 09/05/22 [History Last Taken Unknown] Allergy/AdvReac Type Severity Reaction Status Date / Time polyethylene glycol 3350 Allergy Hives Verified 09/05/22 03:09 [From Miralax] Social History Smoking Status: Heavy Smoker (>10/day) ROS ROS ED Constitutional Constitutional ED: Denies chills, fever(s), subjective or sweats Eyes Eyes: Denies change in vision ENT ENT ED: Denies rhinorrhea or sore throat Cardiovascular Cardiovascular: Denies chest pain, palpitations or racing heartbeat Respiratory/Chest Respiratory/Chest: Denies cough or dyspnea Gastrointestinal Gastrointestinal: Reports nausea; Denies abdominal pain, diarrhea or vomiting Genitourinary Genitourinary ED: Denies dysuria or hematuria Musculoskeletal Musculoskeletal: Reports myalgias Integumentary Denies abscess or rash Neurologic Neurologic: Denies headache(s) Psychiatric Psychiatric: Reports depression Hematologic/Lymphatic Hematologic/Lymphatic: Denies lymphadenopathy Allergic/Immunologic Allergic/Immunologic ED: Denies urticaria EXAM Physical Exam Narrative Exam Narrative: Patient awake alert no acute distress. HEENT shows moist mucous membranes no exudate or erythema. TMs are normal. Nasal passages normal. Sinuses nontender. No intraoral petechiae. Eyes: No conjunctival injection or petechiae. No icterus. Neck: No JVD stridor or meningismus. No lymphadenopathy. Lungs are clear bilaterally. No pain with a deep breath. No coughing. His O2 saturation is normal on room air at 97% showing no hypoxia. Heart is regular. Rate about 90. I hear no murmur gallop or rub in any area of the chest. Peripheral pulses are equal and normal. Abdomen: Soft and nontender with normal bowel sounds. No tenderness and no mass. No hepatosplenomegaly noted. : No suprapubic or CVA tenderness Extremities show minimal small track mckee on the arms but none of the spots of red inflamed infected at all. There are multiple tattoos but none look to be infected. No [place]ay lesions or splinter hemorrhages noted. Skin see above. No signs of infection in any area. Const Vital Signs: 09/05/22 03:10 09/05/22 03:12 Temperature 97.5 F L Temperature Source Temporal Pulse Rate 97 Respiratory Rate 18 Respiratory Effort Normal Respiratory Pattern Normal Blood Pressure 116/70 Blood Pressure Mean 85 Pulse Ox 97 Oxygen Delivery Method Room Air MDM MDM MDM Narrative Medical decision making narrative: Patient most likely has viral syndrome with myalgias and mild nausea and just not feeling well. However, he is at risk for infections from IV drug abuse. He has no fever here or history of a fever. He has no history of skin lesions ever being infected and does not have them now. No history of valvular abnormalities or prior valvular infections. We will do blood work and send off blood cultures. I will also do some viral studies. Patient will be given fluids and some meds for nausea. My independent interpretation of the single view chest x-ray shows no acute process. No infiltrate. No pneumothorax. Mediastinum looks normal. Final by radiology is no radiographic evidence of acute cardiopulmonary disease. CBC is normal including white count hemoglobin and platelets. Electrolytes show no marked abnormalities. Minimal elevation of chloride. I did note that his glucose was up to 168. He was just eating food though. I explained that this is not a diagnosis of diabetes but is concerning and will need follow-up. He should follow-up with a primary physician to recheck this. Liver function tests show no acute abnormalities. Patient's recheck. He is feeling well. Nausea is gone. I explained that this is most likely viral illness. We do have blood cultures pending. If he develops any rash or trouble breathing or any other symptoms he should return. He is not coughing. He is not having headache or neurologic symptoms. I think he is safe and appropriate for discharge. Lab Data Attestation: I reviewed the patient's lab results. Labs: Laboratory Results - last 24 hr 09/05/22 09/05/22 03:34 03:34 WBC 7.4 RBC 4.85 Hgb 13.1 Hct 40.9 MCV 84.3 MCH 27.0 MCHC 32.0 RDW Std Deviation 40.5 RDW Coeff of Concetta 13.1 Plt Count 232 MPV 9.2 Immature Gran % (Auto) 0.300 Neut % (Auto) 58.2 Lymph % (Auto) 29.2 [place] % (Auto) 6.7 Eos % (Auto) 4.6 Baso % (Auto) 1.0 Absolute Neuts (auto) 4.3 Absolute Lymphs (auto) 2.15 Nucleated RBC % 0 Sodium 142 Potassium 3.7 Chloride 108 H Carbon Dioxide 29.0 Anion Gap 5 BUN 12 Creatinine 0.76 Estim Creat Clear Calc 164.50 Est GFR (MDRD) Af Amer 161 Est GFR (MDRD) Non-Af 133 BUN/Creatinine Ratio 15.7 Glucose 168 H Calcium 8.8 Total Bilirubin 0.40 AST 26 ALT 48 Alkaline Phosphatase 93 Total Protein 7.0 Albumin 3.3 Globulin 3.7 Albumin/Globulin Ratio 0.9 Radiography Diagnostic Testing: Clinical Impression(s) from Imaging Studies Chest X-Ray 09/05/22 03:45 IMPRESSION: No radiographic evidence of acute cardiopulmonary disease. Electronically Signed: Dariusz Rodriguez MD at 4:12 EDT Reading Location ID and State: [facility] / [place] Tel , Service support , Discharge Plan Triage Chief Complaint: General Illness ED Provider: Dragan Hernandez Dx/Rx/DC Orders Clinical Impression: Nausea, Myalgia, Opioid abuse Instructions: ED Myalgias Prescriptions: No Action NK Primary Care Provider: Care Physician,No Primary Referrals: Dat De La Cruz MD [Med Staff - Financial Planner] - 3-5 Days if not improving Care Physician,No Primary [Primary Care Provider] - Disposition Disposition: Home, Self Care
[2022-09-05] MEDS: 0.9% Normal Saline 1,000 ML 1000 ML IV (03:30)
[2022-09-05] MEDS: Ondansetron 4 MG/2 ML Vial IV (03:31)
--- NOTE | 2022-09-05 03:45 | RAD_ITS ---
INDICATION: ? pneumonia EXAMINATION/TECHNIQUE: X-RAY - XR Chest 1 View COMPARISON: June 24, 2016. FINDINGS: LINES/DEVICES: None. LUNGS: No consolidation, edema or effusion. Linear subsegmental atelectasis in the lung bases. No pneumothorax. MEDIASTINUM AND CARDIOVASCULAR STRUCTURES: Cardiac silhouette not enlarged. BONES AND SOFT TISSUES: Unremarkable. RAD/Chest 1 View (Portable) IMPRESSION: No radiographic evidence of acute cardiopulmonary disease. Electronically Signed: Dariusz Rodriguez MD at 4:12 EDT ,
[2022-09-05 03:49] LABS: Absolute Lymphocyte Count 2.15 X10^3/uL (0.83-4.51); Absolute Neutrophil Count 4.3 X10^3/uL (2.0-7.7); Basophil# 0.07 X10^3/uL; Eosinophil# 0.34 X10^3/uL; Eosinophils% 4.6 % (0-5); Hematocrit 40.9 % (40-54); Hemoglobin 13.1 g/dL (13.0-16.5); Lymphocyte # 2.15 X10^3/ul (0.83-4.51); Lymphocyte % 29.2 % (19-41); Mean Corpuscular Volume 84.3 fL (80-94); Mean Platelet Vol. 9.2 fl (6.2-12.0); Monocyte# 0.49 X10^3/uL; Monocyte% 6.7 % (0-10); NRBC Flagged by Analyzer 0 % (0-5); Neutrophil # 4.29 X10^3/uL (2.7-7.7); Neutrophil % 58.2 % (47-70); Platelet Count 232 K/mm3 (150-450); RBC Distribution Width CV 13.1 % (11.6-14.6); RBC Distribution Width SD 40.5 fl (35.1-43.9); Red Blood Count 4.85 M/mm3 (4.6-6.2); White Blood Count 7.4 K/mm3 (4.4-11.0)
[2022-09-05 04:40] LABS: ALB/GLOB Ratio 0.9 RATIO (0.9-2.4); AST(SGOT) 26 U/L (15-37); Alanine Aminotransfer ALT/SGPT 48 U/L (16-61); Albumin, Serum 3.3 g/dL (3.2-5.0); Alkaline Phosphatase 93 U/L (45-117); Anion Gap 5 (5-15); BUN 12 mg/dL (7-18); BUN/Creat Ratio 15.7 RATIO (10-20); Calcium,Total 8.8 mg/dL (8.5-10.1); Chloride 108 mmol/L (98-107); Creatinine, Serum 0.76 mg/dL (0.70-1.30); EST Glomerular Filtration Rate 133 mL/min (>60); Est Glom Filt Rate - Afr Amer 161 mL/min (>60); Globulin 3.7 g/dL (2.2-4.2); Glucose 168 mg/dL (74-106); Potassium 3.7 mmol/L (3.5-5.1); Sodium Level 142 mmol/L (136-145)
== END 2022-09-05 05:01 | disposition home or self-care (01) ==
PROVIDERS: Emergency Provider Emergency Medicine; Visit Provider Emergency Medicine
DX: M79.10 Myalgia, unspecified site (principal); F11.10 Opioid abuse, uncomplicated; R11.0 Nausea; F17.200 Nicotine dependence, unspecified, uncomplicated
CPT/HCPCS: 71045; 80053; 85025; 87040; 87428; 96361; 96374; 99282; J7030; A4216; J2405

== ENCOUNTER 2022-12-12 19:31 | Emergency (ER) | payer MEDICAID, SELFPAY ==
[2022-12-12 19:32] VITALS: BP 123/75; PULSE 75; RESP 16; TEMP 36.4; O2SAT 100; BMI 24.0
--- NOTE | 2022-12-12 19:41 | EX.ED.DYSGE1 ---
HPI History of Present Illness Chief Complaint: Allergic Reaction Narrative Narrative: 22-year-old male past medical history of previous opioid withdrawal, denies significant past medical history otherwise presents after injecting methamphetamines, or at least what he thought was methamphetamine. After using an intravenous injection, states he became flushed in his face red. He felt his lips were swollen and he felt scratchiness in the back of his throat. While this is improving, he wanted to be checked out and said he became frightened because of the reaction he was having. He was able to walk to the emergency department. He denies any shortness of breath, no palpitations, no other symptoms. [facility] Medical History Anxiety Asthma Depression Substance abuse Home Medications NK 12/12/22 [History Last Taken Unknown] Allergy/AdvReac Type Severity Reaction Status Date / Time polyethylene glycol 3350 Allergy Hives Verified 12/12/22 19:32 [From Miralax] Social History Smoking Status: Heavy Smoker (>10/day) ROS ROS ED ROS Narrative Constitutional: No fever, no chills. HEENT: No sore throat. No neck pain. No loss of vision. No rhinorrhea. Scratchy throat. Swelling of lips. Denies swelling of tongue. Cardiovascular: No chest pain. No palpitations. No pedal edema. Respiratory: No cough, no shortness of breath. Abdominal: No abdominal pain. No nausea. No vomiting. Genitourinary: No dysuria. No hematuria. Musculoskeletal: No myalgias. No arthralgias. Neurologic: No headaches. No dizziness. No lightheadedness. Skin: No rash. No change in color. Psychiatric: No depression. No anxiety. EXAM Physical Exam Narrative Exam Narrative: Afebrile. Vital signs noted. HEENT: Normocephalic. Atraumatic. PERRL, EOMI. Neck soft and supple. No point tenderness or step off. Perhaps mild appreciable lip swelling. Airway patent. No drooling or trismus. No stridor. Cardiovascular: Regular rate and rhythm. No murmurs, rubs, or gallops appreciated. Respiratory: No tachypnea. Lungs clear to auscultation bilaterally. Gastrointestinal: Abdomen soft, nontender, with normoactive bowel sounds. No rebound or guarding. Neurological: Awake. Alert. Nonfocal, nonlateralizing. Skin: No rash. Flushed skin on face and neck no pallor. Musculoskeletal: No pedal edema. Full range of motion extremities. Const Vital Signs: 12/12/22 19:32 Temperature 97.6 F L Temperature Source Temporal Pulse Rate 75 Respiratory Rate 16 Blood Pressure 123/75 H Blood Pressure Mean 91 Pulse Ox 100 MDM MDM MDM Narrative Medical decision making narrative: Given the patient's flushing, concern would be more for stimulant overdose. As he states his lips feel slightly swollen, he may be having an allergic reaction to an ingredient of what ever he may have injected and what he thought was crystal methamphetamine. I do not feel that IV access needs to be obtained, his pulse ox is 100% on room air without evidence of hypoxia. He is not hypotensive, nor is he tachycardic so I do not have concern for anaphylaxis. Instead he was administered Benadryl 25 mg orally and Pepcid 20 mg orally as another histamine gaudencio. I did not give him steroids because he gets hives from polyethylene glycol and could have a cross reaction. Upon repeat examination at approximately 2140, patient feels improved. His lips are nonswollen, he has no signs of angioedema or stridor, and his facial flushing has improved. He was told to avoid use of methamphetamine. He states he is working on looking for an outpatient detox center. He was referred to a primary care provider, and to the counseling center/[facility] as well. I feel he can be discharged safely home with follow-up and I do not feel that he requires observation or admission any longer. Return instructions to the emergency department were reviewed. Disposition is discharged home in improved and stable condition. Discharge Plan Triage Chief Complaint: Allergic Reaction ED Provider: Tevin Quiles Dx/Rx/DC Orders Clinical Impression: Facial flushing, Allergic reaction, Methamphetamine abuse Instructions: ED Allergic Reaction Local Other, ED Drug Abuse Prescriptions: No Action NK Primary Care Provider: Care Physician,No Primary Referrals: Counseling,Center [Group of Physicians] - As soon as possible Salvatore Wheeler MD [Med Staff - Active Staff] - As Needed Care Physician,No Primary [Primary Care Provider] - Activity Restrictions/Additional Instructions: Avoid use of methamphetamines. Continue investigation and finding an outpatient rehabilitation center. Disposition Disposition: Home, Self Care
[2022-12-12] MEDS: Famotidine 20 MG Tablet PO (19:47)
[2022-12-12] MEDS: predniSONE 20 MG Tablet 40 MG PO (19:47)
[2022-12-12 22:07] VITALS: PULSE 72; RESP 16; O2SAT 99
== END 2022-12-12 22:07 | disposition home or self-care (01) ==
PROVIDERS: Emergency Provider Emergency Medicine; Visit Provider Emergency Medicine
DX: R23.2 Flushing (principal); F15.10 Other stimulant abuse, uncomplicated; T43.655A Adverse effect of methamphetamines, initial encounter; F17.200 Nicotine dependence, unspecified, uncomplicated
CPT/HCPCS: 99283